=== PATIENT | male | born 2000 | race Caucasian/White ===

== ENCOUNTER 2019-04-15 11:49 | Emergency (ER) | payer OTHER, SELFPAY ==
--- NOTE | ~2019-04-15 | XR_ITS ---
EXAMINATION: XR chest 2V EXAM DATE: 04/15/2019 13:14 INDICATION: cough, congestion 1 week. Asthma. TECHNIQUE: Frontal and lateral projections of the chest obtained and reviewed. There is no prior [place] for comparison. FINDINGS: The lungs are clear. There are no pleural effusions. The cardiomediastinal silhouette is within normal limits. There is no pneumothorax suspected. The bones and soft tissues are unremarkab le. IMPRESSION: Normal chest x-ray exam. Reviewed, dictated and finalized at location A. [employer] IMPRESSION: Normal chest x-ray exam.
[2019-04-15 12:13] VITALS: BP 148/81; PULSE 117; RESP 20; TEMP 39.4; O2SAT 98
--- NOTE | 2019-04-15 12:56 | ED.URI ---
HPI - URI/Sore Throat General Chief Complaint: Upper Respiratory Infection Stated Complaint: cough and congestion Time Seen by Provider: 04/15/19 12:44 Source: patient and RN notes reviewed Mode of arrival: ambulatory Limitations: no limitations History of Present Illness HPI Narrative: Patient presents today with a one-week history of cough That is occasionally productive, occasional shortness of breath. Chills and sweats have developed over the last couple of days with congestion and sore throat. He has been taking DayQuil and NyQuil. No known fever at home, however, patient's temperature upon arrival was 103.Patient has 2 more days of amoxicillin s/p wisdom tooth removal. MD elicited complaint: cough Related Data Home Medications Medication Instructions Recorded Confirmed amoxicillin 875 mg PO Q12H 04/15/19 04/15/19 ibuprofen 800 mg PO Q6H PRN 04/15/19 04/15/19 tramadol 50 mg PO Q6H PRN 04/15/19 04/15/19 Allergies Allergy/AdvReac Type Severity Reaction Status Date / Time No Known Allergies Allergy Verified 04/15/19 12:40 Review of Systems Review of Systems: Narrative: CONSTITUTIONAL: Denies body aches, fever. +Chills, sweats EYES: Denies visual changes, redness, or discharge. ENT: Denies rhinorrhea, or otalgia.+Congestion, sore throat CARDIOVASCULAR: Denies chest pain, palpitations, or edema. RESPIRATORY: +Cough, occasional shortness of breath GASTROINTESTINAL: Denies abdominal pain, nausea, vomiting, or diarrhea. GENITOURINARY: Denies dysuria or hematuria. SKIN: Denies rash, itching, or wounds. MUSCULOSKELETAL: Denies back pain, joint pain, or myalgia. NEUROLOGIC: Denies headache, numbness, tingling, or weakness. PSYCH: Denies depression or anxiety. PMFSH Surgical History Surgical History (Updated 04/15/19 @ 12:58 by Melanie Crabtree, MEDICAL AUDITOR, ) H/O wisdom tooth extraction Comments At time of signature, I have reviewed and agree with nursing past medical, surgical, social and family history unless otherwise noted. Please see nursing chart for further information. There is no relevant family history pertinent to the presenting complaint Exam Narrative: Exam Narrative: GENERAL: Mildly ill-appearing, well-nourished, and in no acute distress. HEAD: Normocephalic, atraumatic. EYES: EOMI. No redness or drainage. Conjunctivae normal. ENT: Mucous membranes pink and moist. Nares with clear drainage. Patient had small amount of epistaxis after arrival in exam room, but this has stopped after pressure was applied. No rhinorrhea. TMs normal bilaterally. Throat normal. Uvula midline. NECK: Normal AROM. Supple. No lymphadenopathy. CHEST: No respiratory distress. Clear to auscultation. HEART: Regular rate and rhythm. No murmur appreciated. Normal peripheral pulses. EXTREMITIES: Normal range of motion. No edema. SKIN: Warm, dry, no rash. NEURO: No focal deficits. Alert and oriented x3. Gait steady. PSYCH: Normal affect. No signs of depression or anxiety. Course Course Emergency Course: Patient's chest x-ray is negative for pneumonia today.I will not swab patient for influenza as he has been sick for 1 week and is also currently having epistaxis, which I do not want to exacerbate.Patient does not seem in any distress and is nontoxic-appearing.He is currently finishing up a course of antibiotics.We will treat with some steroids for the cough, and patient has been instructed to follow-up with his PCP with any concerns. He is also been instructed to go the ER immediately with any worsening symptoms.We will treat with some steroids for the cough, and patient has been instructed to follow-up with his PCP with any concerns. He is also been instructed to go the ER immediately with any worsening symptoms. Vital Signs Vital signs: Vital Signs Temperature 103.0 F H 04/15/19 12:13 Pulse Rate 117 H 04/15/19 12:13 Respiratory Rate 20 04/15/19 12:13 Blood Pressure 148/81 H 04/15/19 12:13 Pulse Oximetry 98 02/
[2019-04-15 13:53] VITALS: TEMP 38.4
== END 2019-04-15 13:53 | disposition home or self-care (01) ==
PROVIDERS: Emergency Provider Nurse Practitioner
DX: J40 Bronchitis, not specified as acute or chronic (principal); R50.9 Fever, unspecified
CPT/HCPCS: 71046; 99203; G0463

== ENCOUNTER 2019-04-18 09:20 | Emergency (ER) | payer OTHER, SELFPAY ==
[2019-04-18 10:12] VITALS: BP 135/78; PULSE 76; RESP 16; TEMP 36.7; O2SAT 100
--- NOTE | 2019-04-18 10:49 | ED.GENADULT ---
HPI - General Adult General Chief complaint: Upper Respiratory Infection Stated complaint: cough Time Seen by Provider: 04/18/19 10:49 Source: patient Mode of arrival: ambulatory Limitations: no limitations History of Present Illness HPI narrative: 18-year-old male patient presents to the [facility] with complaints of cough for the past week and a half. Patient states that he is coughing up some green stuff at times. Little bit of runny nose, stuffy nose. Denies any fevers, ear pain. Patient denies any chest pain, shortness breath, abdominal pain, nausea, vomiting or diarrhea. Patient states his he was seen Monday for his cough and was given steroids. Patient states he has not finished the steroids yet. Patient states he presents because the cough continues. Related Data Home Medications Medication Instructions Recorded Confirmed No Home Medications 04/18/19 04/18/19 Allergies Allergy/AdvReac Type Severity Reaction Status Date / Time No Known Allergies Allergy Verified 04/18/19 10:18 Review of Systems Review of Systems: Narrative: CONSTITUTIONAL: Denies fever, chills, or sweats. EYES: Denies visual changes, redness, or discharge. ENT: Positive rhinorrhea, congestion, denies sore throat, or otalgia. CARDIOVASCULAR: Denies chest pain, palpitations, or edema. RESPIRATORY: Positive cough denies dyspnea. GASTROINTESTINAL: Denies abdominal pain, nausea, vomiting, or diarrhea. GENITOURINARY: Denies dysuria or hematuria. SKIN: Denies rash or itching. MUSCULOSKELETAL: Denies back pain, joint pain, or myalgia. NEUROLOGIC: Denies headache, numbness, or weakness. PSYCHIATRIC: Denies anxiety or depression. PMFSH Surgical History Surgical History H/O wisdom tooth extraction Comments At the time of my signature I agree with nursing past medical history, surgical, social, and family history. There is no relevant family history pertinent to the presenting complaint. Exam Narrative: Exam Narrative: GENERAL: Well-appearing, well-nourished, and in no acute distress. HEAD: Normocephalic, atraumatic. EYES: PERRLA and EOMI. ENT: Nares with erythema and edema noted bilaterally, patent, no rhinorrhea or epistaxis. Mucous membranes moist. Posterior pharynx with no erythema, tonsillar margin, exudates or lesions present. Bilateral TMs are clear no erythema or foreign bodies in the canal. NECK: Supple. No lymphadenopathy CHEST: Clear to auscultation. No respiratory distress. HEART: Regular rate and rhythm. No murmur heard. Normal peripheral pulses. ABDOMEN: Soft, nontender, nondistended, normal active bowel sounds. EXTREMITIES: Normal range of motion. No edema. SKIN: Warm, dry, no rash. NEURO: No focal deficits. Alert and oriented x3. Course Vital Signs Vital signs: Vital Signs Temperature 36.7 C 04/18/19 10:12 Pulse Rate 76 04/18/19 10:12 Respiratory Rate 16 04/18/19 10:12 Blood Pressure 135/78 04/18/19 10:12 Pulse Oximetry 100 04/18/19 10:12 Temperature 36.7 C 04/18/19 10:12 Pulse Rate 76 04/18/19 10:12 Respiratory Rate 16 04/18/19 10:12 Blood Pressure 135/78 04/18/19 10:12 Pulse Oximetry 100 04/18/19 10:12 Vital signs reviewed. Medical Decision Making Differential Diagnosis Differential Diagnosis: Differential diagnosis: Allergic rhinitis, chronic sinusitis, tonsillitis, acute sinusitis, infectious mononucleosis, seasonal influenza, pertussis, diphtheria, meningococcal disease, viral syndrome, viral bronchitis, RSV. Discussed with patient I would recommend finishing his steroids that he was prescribed for his cough as well as taking some [id number] cough medication or a 24-hour antihistamine or even a nasal steroid to help with the drainage. Discussed with him that his lungs are completely clear to the cough is not coming from the lungs is most likely coming from the drainage. Discussed with patient that this is viral he
== END 2019-04-18 11:03 | disposition home or self-care (01) ==
PROVIDERS: Emergency Provider Nurse Practitioner Family
DX: J06.9 Acute upper respiratory infection, unspecified (principal)
CPT/HCPCS: 99211; G0463

== ENCOUNTER 2020-09-10 15:30 | Emergency (ER) | payer OTHER, SELFPAY ==
[2020-09-10 15:35] VITALS: BP 130/74; PULSE 77; RESP 18; TEMP 37.3; O2SAT 99
--- NOTE | 2020-09-10 16:32 | ED.EAR ---
HPI - Ear Problem General Chief complaint: Ear Stated complaint: Loss of hearing in right Ear Time Seen by Provider: 09/10/20 15:55 Source: patient, RN notes reviewed and old records reviewed Mode of arrival: ambulatory Limitations: no limitations History of Present Illness HPI Narrative: 20-year-old male with decreased hearing in his right ear 1 day states that his hearing is muffled. Patient denies any pain to his right ear, denies any discharge from his right ear. Patient sttes that he has had no sinus congestion, sinus drainage, cough, fevers or any incidence of shortness of breath. Patient states that he has had COVID vaccination. MD Complaint: decreased hearing Location: right ear Relieving factors: nothing Exacerbating factors: nothing Discharge from ear: Reports no Related Data Home Medications Medication Instructions Recorded Confirmed No Home Medications 04/18/19 04/18/19 Allergies Allergy/AdvReac Type Severity Reaction Status Date / Time No Known Allergies Allergy Verified 04/18/19 10:18 Review of Systems Review of Systems: Narrative: CONSTITUTIONAL: Denies fever, chills, or sweats. EYES: Denies visual changes, redness, or discharge. ENT: Denies rhinorrhea, congestion, sore throat, or otalgia positive for muffled hearing in his right ear CARDIOVASCULAR: Denies chest pain, palpitations, or edema. RESPIRATORY: Denies cough or dyspnea. GASTROINTESTINAL: Denies abdominal pain, nausea, vomiting, or diarrhea. GENITOURINARY: Denies dysuria or hematuria. SKIN: Denies rash or itching. MUSCULOSKELETAL: Denies back pain, joint pain, or myalgia. NEUROLOGIC: Denies headache, numbness, or weakness. PSYCHIATRIC: Denies anxiety or depression. All systems reviewed & are unremarkable except as noted in HPI and below [facility] Past Medical History Medical History (Updated 09/13/20 @ 11:54 by Sammie Cummings NP) Asthma due to seasonal allergies Surgical History Surgical History (Updated 09/13/20 @ 11:54 by Sammie Cummings NP) H/O wisdom tooth extraction Hx of tonsillectomy Family History Family History (Updated 09/13/20 @ 11:54 by Sammie Cummings NP) Other No significant family history Social History Social History (Updated 09/13/20 @ 11:55 by Sammie Cummings NP) Smoking status: Never smoker Alcohol intake: current Alcohol use details: rare social Substance use: never Living arrangements: with family Gender identity (if verbalized by the patient): Male Comments At time of signature, agree with nursing past medical, surgical, social and family history. There is no relevant family history pertinent to the presenting complaint Exam Narrative: Exam Narrative: GENERAL: Well-appearing, well-nourished, and in no acute distress. HEAD: Normocephalic, atraumatic. EYES: PERRLA and EOMI. ENT: Nares clear, no rhinorrhea or epistaxis. Mucous membranes moist.Right TM unable to view dark black wax, Left TM normal with good light reflex, throat pink with no lesions, exudates no tonsils present. After irrigation performed to his right ear TM noted to be normal with good light reflex, no redness of ear canal. NECK: Supple.no lymphadenopathy CHEST: Clear to auscultation. No respiratory distress.SAO2 99% on room air HEART: Regular rate and rhythm. No murmur heard. Normal peripheral pulses. ABDOMEN: Soft, nontender, nondistended, normal active bowel sounds. EXTREMITIES: Normal range of motion. No edema. SKIN: Warm, dry, no rash. NEURO: No focal deficits. Alert and oriented x3. Course Vital Signs Vital signs: Vital Signs Temperature 37.3 C 09/10/20 15:35 Pulse Rate 77 09/10/20 15:35 Respiratory Rate 18 09/10/20 15:35 Blood Pressure 130/74 09/10/20 15:35 Pulse Oximetry 99 09/10/20 15:35 Temperature 37.3 C 09/10/20 15:35 Pulse Rate 77 09/10/20 15:35 Respiratory Rate 18 09/10/20 15:35 Blood Pressure 130/74 09/10/20 15:35 Pulse Oximetry 99 09/10/20 15:35
== END 2020-09-10 16:44 | disposition home or self-care (01) ==
PROVIDERS: Emergency Provider Registered Nurse
DX: H61.21 Impacted cerumen, right ear (principal); J45.909 Unspecified asthma, uncomplicated
CPT/HCPCS: 69209; 99211; G0463